=== PATIENT | male | born 1985 | race African-American/Black ===

== ENCOUNTER 2016-11-01 14:36 | Emergency (ER) | payer SELFPAY ==
[~2016-11-01 14:36] MED LIST: AMOXICILLIN PO; AMOXICILLIN500 M1 PO; CLEOCIN150 MG PO; IBUPROFEN800 MG PO; LORTAB 5/500 TA1 TA2 PO
== END 2016-11-01 15:33 | disposition home or self-care (01) ==
LOC: CED 14:36 → CFTX 14:36
DX: L30.8 Other specified dermatitis (principal); Z21 Asymptomatic human immunodeficiency virus [HIV] infection status
CPT/HCPCS: 99283